=== PATIENT | female | born 1995 | race Caucasian/White ===

== ENCOUNTER → 2020-09-21 16:28 | Outpatient (CLI) | payer BC, SELFPAY ==
[2020-09-21 17:03] LABS: Add Manual Diff / Slide Review NO; Basophils Absolute Auto 0 /uL (0-100); Basophils Percent Auto 0.4 % (0-2); Eosinophils Absolute Auto 100 /uL (0-450); Eosinophils Percent Auto 0.7 % (2-4); Hematocrit 34.9 % (36-46); Hemoglobin 12.2 g/dL (12.0-16.0); Lymphocytes Absolute Auto 2500 /uL (1100-4500); Lymphocytes Percent Auto 22.7 % (25-40); Mean Corpuscular HGB Conc 35.1 % (30-36); Mean Corpuscular Hemoglobin 31.3 PG (26-34); Mean Corpuscular Volume 89.2 fL (80-100); Monocytes Absolute Auto 500 /uL (0-900); Monocytes Percent Auto 4.6 % (3-14); Neutrophils Absolute Auto 7800 /uL (1500-7000); Neutrophils Percent Auto 71.6 % (50-75); Platelet Count 247 X10^3/uL (150-400); Red Blood Cell Count 3.92 X10^6/uL (4.0-5.2); Red Cell Distribution Width 12.1 % (11.6-14.8); White Blood Cell Count 10.8 X10^3/uL (4.5-11.0)
[2020-09-21 18:38] LABS: Hepatitis B Surface Antigen NEGATIVE s/c (NEGATIVE)
[2020-09-21 19:02] LABS: HIV 1 & 2 Ab/Ag 4th Gen Combo NEGATIVE (NEGATIVE); Hep C Virus Ab w/Reflex Quant NEGATIVE s/c (NEGATIVE)
[2020-09-22 07:09] LABS: RPR Screen Non Reactive (Non Reactive)
[2020-09-22 08:12] LABS: Varicella IgG Antibody 2894 index (Immune >165)
== END ==
PROVIDERS: PCP Family Medicine; Referring Provider Obstetrics & Gynecology; Visit Provider Obstetrics & Gynecology
DX: Z34.01 Encounter for supervision of normal first pregnancy, first trimester (principal)
CPT/HCPCS: 36415; 80055; 86787; 86803; 86850; 86900; 86901; 87389

== ENCOUNTER → 2020-12-08 11:01 | Outpatient (CLI) | payer BC, SELFPAY ==
--- NOTE | 2020-12-08 11:08 | DI.US.S_ITS ---
PROCEDURE: US OB >= 14 WEEKS FETUS INDICATIONS: ANATOMY OUTSIDE/PRIOR DATING DATA: Last menstrual period (LMP): 07/16/2020. LMP-based estimated date of delivery (MÓNICA): 04/22/2021. First dating scan (date and location): 12/08/[address] [facility]. Estimated date of delivery (MÓNICA) from first dating scan: 04/23/2021. TECHNIQUE: Real-time scanning was performed of the fetus, with image documentation and biometric measurements. Endovaginal scanning: Not performed COMPARISON: [facility], US, US OB >= 14 WEEKS FETUS, 11/02/2020, 13:47. FINDINGS: General: A single living intrauterine gestation is present. Presentation: Variable Placenta: Placental position is posterior, without previa. Amniotic fluid index: 20.9 cm, normal range is 5-24 cm. heart rate: 133 beats per minute. Maternal cervical canal: 2.8 cm long. Normal lower limit is 2.5 cm. biometrics: Biparietal diameter: 4.9 cm, 20 weeks 6 days Head circumference: 18.0 cm, 20 weeks 3 days Abdominal circumference: 16.2 cm, 21 weeks 2 days Femur length: 3.4 cm, 20 weeks 4 days Estimated gestational age from initial scan: 20 weeks 4 days. Composite gestational age from present scan: 20 weeks 6 days Estimated weight and percentile: 384 g, 63rd percentile Measurement variability for biometric dating: +/- 7 days from 14 weeks to 15 weeks 6 days gestation, +/- 10 days from 16 weeks to 21 weeks 6 days gestation, +/- 2 weeks from 22 weeks to 27 weeks 6 days gestation, +/- 3 weeks for 28 weeks gestation or later. weight reference: 4500 g or EFW >90/95% is considered macrosomia or large for gestational age. EFW <10% is small for gestational age. EFW 5% or less is considered intra-uterine growth restriction. Anatomic survey: Neuro: Ventricles are non-dilated at less than 10 mm. Cisterna magna is normal at 3-11 mm. Cerebellum is normal in size and morphology. Nuchal skin fold: Normal at less than 6 mm between 14-21 weeks gestational age. Face: Nose and lips and orbits are normal. profile not well visualized due to positioning. Spine: No evidence for spina bifida. Heart: 4-chambered heart is present, with normal ventricular outflow tracts. Diaphragm: Diaphragm is intact. Stomach: Left-sided stomach is present. Kidneys: No hydronephrosis. Normal is less than 5 mm in 2nd trimester, less than 7 mm in 3rd trimester. Cord: 3-vessel cord has orthotopic insertion. Bladder: Normal in size. Extremities: All 4 extremities identified. IMPRESSION: 1. Single live intrauterine with appropriate interval growth. 2. anatomic survey within normal limits apart from poor visualization of the facial profile. Follow-up is recommended. Dictated by: Chase Esposito M.D. on 12/08/2020 at 18:01 Approved by: Chase Esposito M.D. on 12/08/2020 at 18:05
[2020-12-10 20:10] LABS: AFP, Serum 59.5 ng/mL (.); Estriol, Free 2.82 ng/mL (.); Inhibin A, Dimeric 157.33 pg/mL (.); Inhibin A, MoM 0.77 (.); Maternal Ethnicity Caucasian (.); Maternal Weight 155 lbs (.); Number of Fetuses No (.); OSBR Risk 1 IN 10000 (.); Results Report (.); Test Results *Screen Negative* (.); hCG, MoM 0.22 (.); hCG, Serum 5015 mIU/mL (.)
== END ==
PROVIDERS: PCP Family Medicine; Referring Provider Obstetrics & Gynecology; Visit Provider Obstetrics & Gynecology
DX: Z34.02 Encounter for supervision of normal first pregnancy, second trimester (principal); Z3A.20 20 weeks gestation of pregnancy
CPT/HCPCS: 36415; 76811; 82105; 82677; 84702; 86336

== ENCOUNTER → 2021-02-03 11:18 | Outpatient (CLI) | payer BC, SELFPAY ==
[2021-02-03 14:09] LABS: GTT (PREG) 1 Hour PP 50gm Dose 114 mg/dL (76-139)
== END ==
PROVIDERS: PCP Family Medicine; Referring Provider Obstetrics & Gynecology; Visit Provider Obstetrics & Gynecology
DX: Z34.02 Encounter for supervision of normal first pregnancy, second trimester (principal); Z3A.28 28 weeks gestation of pregnancy
CPT/HCPCS: 36415; 82950; 85014; 85018

== ENCOUNTER → 2021-03-31 10:30 | Outpatient (CLI) | payer BC, SELFPAY ==
[2021-04-01 12:25] LABS: Strep Grp B PCR POS for Grp B Strep
== END ==
PROVIDERS: PCP Family Medicine; Visit Provider Obstetrics & Gynecology
DX: Z34.03 Encounter for supervision of normal first pregnancy, third trimester (principal); Z3A.36 36 weeks gestation of pregnancy
CPT/HCPCS: 87653

== ENCOUNTER 2021-04-10 09:22 | Outpatient (CLI) | payer BC, SELFPAY ==
--- NOTE | 2021-04-10 09:27 | PM.OBTRLD ---
Visit Information Visit Information Date of evaluation: 04/10/21 Primary OB Provider: Delisa Echavarria On-call OB Provider: Bam Garrido Reason for Evaluation: Yes non-stress test and Yes other Comments/Additional reasons for admission: Decreased FM [facility] Medical History (Updated 02/03/21 @ 14:10 by Delisa Echavarria MD) Bronchitis (~2018) Right knee pain (~2019) Surgical History (Updated 09/15/20 @ 13:39 by Neli Woods, RN) [place] teeth extracted (~2005) Family History (Updated 09/15/20 @ 13:44 by Neli Woods RN) Mother Adopted Family history unknown Father No problems noted. Grandmother Family history unknown Grandfather Family history unknown Grandmother No problems noted. Grandfather No problems noted. Family/Other ADHD (attention deficit hyperactivity disorder) Social History marital status: number of children: 0 household members: spouse and family (Upstairs duplex rented to [id number] lives independently: No caregiver/support person: No housing: condominium pets and animals: Yes (2 dogs, 1 cat.) education level: college (Some college. 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 Quit 2018. ) Tobacco: How many years used: 1 second hand exposure: No alcohol intake: former (Quit when she found out she was . 2-3 drinks 3-4 times a week formerly. ) substance use type: former substance user and marijuana (Daily use pre-. ) Type(s) of exercise: walking (Almost everyday. ) and running (Stopped running due to knee pain.) frequency: other (Daily stretching. ) Evaluation Evaluation Baseline heart rate: 130 Variability: Moderate (11-25) monitor accelerations: Present Monitor Decelerations: Absent Category of Tracing: Reactive Status: Category l Comments: Infant remains in breech presentation by Johnny's maneuvers and she is scheduled for primary for breech on 04/15/2021. Patient will continue to observe FM, which is normal today with numerous movements noted over 25 minutes of observation. Labor precautions reviewed.,
== END 2021-04-10 09:41 | disposition home or self-care (01) ==
LOC: LABOR 09:41 → OB 04-12 11:15
PROVIDERS: PCP Family Medicine; Referring Provider Obstetrics & Gynecology; Visit Provider Obstetrics & Gynecology
DX: O36.8130 Decreased fetal movements, third trimester, not applicable or unspecified (principal); Z3A.38 38 weeks gestation of pregnancy
CPT/HCPCS: 59025; G0378; G0379

== ENCOUNTER → 2021-04-14 14:10 | Outpatient (CLI) | payer BC, SELFPAY ==
[2021-04-14 15:29] LABS: COVID19 -Nasal RAPID Negative (Negative)
== END ==
PROVIDERS: PCP Family Medicine; Visit Provider Obstetrics & Gynecology
DX: Z01.812 Encounter for preprocedural laboratory examination (principal); Z20.822 Contact with and (suspected) exposure to COVID-19
CPT/HCPCS: 87635

== ENCOUNTER 2021-04-15 06:20 | Inpatient (IN) | payer BC, SELFPAY ==
[2021-04-15 07:13] LABS: Add Manual Diff / Slide Review NO; Basophils Absolute Auto 0 /uL (0-100); Basophils Percent Auto 0.4 % (0-2); Eosinophils Absolute Auto 100 /uL (0-450); Eosinophils Percent Auto 0.9 % (2-4); Hematocrit 36.7 % (36-46); Hemoglobin 12.6 g/dL (12.0-16.0); Lymphocytes Absolute Auto 1800 /uL (1100-4500); Lymphocytes Percent Auto 19.6 % (25-40); Mean Corpuscular HGB Conc 34.3 % (30-36); Mean Corpuscular Hemoglobin 31.3 PG (26-34); Mean Corpuscular Volume 91.2 fL (80-100); Monocytes Absolute Auto 500 /uL (0-900); Monocytes Percent Auto 5.3 % (3-14); Neutrophils Absolute Auto 6900 /uL (1500-7000); Neutrophils Percent Auto 73.8 % (50-75); Platelet Count 166 X10^3/uL (150-400); Red Blood Cell Count 4.02 X10^6/uL (4.0-5.2); Red Cell Distribution Width 13.1 % (11.6-14.8); White Blood Cell Count 9.4 X10^3/uL (4.5-11.0)
--- NOTE | 2021-04-15 07:18 | SUR.OPER ---
Supine on Padded OR bed, head on pillow, safety belt at thigh, arms secured on padded arm boards at <90 degrees abduction. Bump under right buttock. Legs uncrossed with pillow under knees, gel pad to heels, tape over blanket to lower legs.
--- NOTE | 2021-04-15 07:42 | P.HP_ITS ---
History of Present Illness History of Present Illness Date Patient Seen: 04/15/21 Time Patient Seen: 07:42 Chief complaint: INPT Narrative: Patient is a 25-year-old 1 para 0 with a uterine didelphys and breech presentation. She is scheduled for primary low-transverse section. Patient History Medical History (Updated 02/03/21 @ 14:10 by Delisa Echavarria MD) Bronchitis (~2018) Right knee pain (~2019) Surgical History (Updated 09/15/20 @ 13:39 by Neli Woods RN) [place] teeth extracted (~2005) Family & Social History Family History (Updated 09/15/20 @ 13:44 by Neli Woods RN) Mother Adopted Family history unknown Father No problems noted. Grandmother Family history unknown Grandfather Family history unknown Grandmother No problems noted. Grandfather No problems noted. Family/Other ADHD (attention deficit hyperactivity disorder) Social History: household members spouse,family lives independently No caregiver/support person No Tobacco & Substance use: Smoking Status Former smoker alcohol intake former Meds Home Medications and Allergies Home Medications Medication Instructions Recorded Confirmed Type prenat.vits,gold,ken-jqpl-odioo 1 tab PO DAILY 09/15/20 04/06/21 History Allergies Allergy/AdvReac Type Severity Reaction Status Date / Time No Known Drug Allergies Allergy Verified 04/06/21 16:32 Exam Vital Signs (past 8 hours): Generally: Patient is sitting up in bed, no acute distress Lungs: Clear to auscultation bilaterally Cardiovascular: Regular rate and rhythm Fundal height: 40 cm Estimated weight 7-1/2 lb Extremities: Trace edema, negative Homans Objective Labs Result Diagrams: 04/15/21 07:05 Labs: Laboratory Results - last 24 hr 04/15/21 07:05 WBC 9.4 RBC 4.02 Hgb 12.6 Hct 36.7 MCV 91.2 MCH 31.3 MCHC 34.3 RDW 13.1 Plt Count 166 Neut % (Auto) 73.8 Lymph % (Auto) 19.6 L Dillon % (Auto) 5.3 Eos % (Auto) 0.9 L Baso % (Auto) 0.4 Neut # (Auto) 6900 Lymph # (Auto) 1800 Dillon # (Auto) 500 Eos # (Auto) 100 Baso # (Auto) 0 Assessment & Plan Assessment & Plan narrative: Assessment: 25-year-old 1 para 0 at 39 weeks gestation with uterine didelphys and breech presentation Plan: Primary low-transverse section The risks, benefits, and alternatives to the procedure were explained to the patient. The risks including bleeding, infection, injury to the bowel, bladder, or ureters. She understands these risks and agrees to proceed. A full par Q was held and consent form was signed. COVID-19 COVID-19 status: Negative Result date/Date tested (Pos, Neg/Pending): 04/14/21 Time Spent With Patient Time with patient: less than 15 minutes
--- NOTE | 2021-04-15 07:43 | PM.PREOP ---
Pre-operative Note COVID-19 COVID-19 status: Negative Result date/Date tested (Pos, Neg/Pending): 04/14/21 Interval Note History & Physical reviewed/Exam performed by Physician: Yes Changes to H&P: No H&P completed within 30 days and has changed as indicated here:: 04/15/21
[2021-04-15] MEDS: CITRIC ACID/SODIUM CITRATE 15 ML SOLUTION 30 ML PO (08:00)
[2021-04-15] MEDS: ACETAMINOPHEN 325 MG TABLET 975 MG PO (08:00)
[2021-04-15] MEDS: LACTATED RINGERS 1,000 ML 100 ML IV ×2 (08:30→09:30)
--- NOTE | 2021-04-15 09:01 | SUR.OPER ---
Viable male breech position delivered at 08:56. Cord blood vials x2 and placenta taken by L&D RN.
[2021-04-15] MEDS: CEFAZOLIN 1 GM VIAL 2 GM IV (09:07)
--- NOTE | 2021-04-15 09:59 | PM.OBCS.1 ---
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 The gave fundal pressure on delivery of the breech presentation. They assisted with retraction on closure of the uterus, bladder flap, peritoneum, fascia, and subcutaneous layer. They closed the contralateral side of the fascia. Anesthesia Type: Spinal (With Duramorph) Operative Notes Findings: Live male infant in the complete breech presentation Nuchal cord x1 Uterine didelphys Normal tubes and ovaries Closure Type: primary Specimen(s): cord blood and placenta Intraoperative meds administered: Acetaminophen, Duramorph and Ketorolac Applied: Catheter (To continuous drainage) Estimated Blood Loss (mL): 550 Blood products transfused: none Procedure in detail: The patient was taken to the operating room where she was placed in the seated position. Spinal anesthesia with Duramorph was administered. She was then placed in the dorsal supine position with a leftward tilt. She was prepped and draped in the usual sterile fashion. A timeout was performed. After spinal analgesia was found to be adequate, a Pfannenstiel skin incision was made 2 fingerbreadths above the pubic symphysis and carried through to the underlying layer fascia. The fascia was nicked in the midline, and the incision extended bilaterally with the Holley scissors. The superior aspect of the fascial incision was grasped with a [place] clamps, elevated, and the underlying rectus muscles dissected off sharply and bluntly. Attention was then turned to the inferior aspect of this incision which in a similar fashion was grasped with a [place] clamps, elevated, and the underlying rectus muscles dissected off sharply and bluntly. The rectus muscles were in the midline. The peritoneum was identified, grasped between 2 hemostats, and entered sharply with the Metzenbaum scissors. This incision was extended superiorly and inferiorly with good visualization of the bladder. The bladder blade was inserted. The vesicouterine peritoneum was identified, grasped with the pickup, and entered sharply with the Metzenbaum scissors. This incision was extended bilaterally, and the bladder flap was created digitally. The bladder blade was reinserted. The lower uterine segment was incised in a transverse fashion with the scalpel. Upon entering the amniotic sac there was a large amount of clear amniotic fluid. The infant was delivered by total breech extraction by delivering the buttocks, then both legs, turning the baby into side position and delivering 1 arm and then rotating the baby 180? to recur deliver the other arm. Two fingers were placed into the baby's mouth to keep the head flexed on delivery of the head. A nuchal cord x1 was reduced. There was a delay of cord clamping for 1 minute. The cord was double clamped and cut. The infant was handed off to waiting RN and RT. The placenta was delivered manually. The uterus was cleared of all clots and debris. The uterine incision was repaired with #1 chromic in a running interlocking fashion, and a second layer the same suture was used for an imbricating layer. Hemostasis was achieved. The tubes and ovaries were examined and were found to be normal. The gutters were cleared of all clots and debris. The bladder flap was reapproximated using 2-0 Vicryl in a running fashion. The parietal peritoneum was closed using 2-0 Vicryl in a running fashion. The fascia was reapproximated using 0 Vicryl in a running fashion. Subcutaneous layer was copiously irrigated with warm normal saline. 5 simple interrupted sutures of 3-0 Vicryl were placed to reapproximate the subcutaneous layer. The skin was closed with 4-0 Biosyn in a subcuticular fashion. Steri-Strips were placed. An Aquacel dressing was placed. The uterus was expressed of a small amount of old blood. Sponge, lap, and instrument counts were correct x-2. The patient tolerated the procedure well, and was taken to PACU in stable condition. Complications: none [place] Baby 1: Infant Gender: Male Presentation: breech Details: complete Placental Delivery Description: Manual Removal Cord Vessel Description: 3 Vessels and Nuchal Cord (X1) score (1 min): 8 score (5 min): 9 weight: 8 lb 1 oz Post-operative Condition: stable Disposition: PACU Aftercare: routine postop
[2021-04-15 10:00] VITALS: BP 136/68; PULSE 57; PULSE 58; RESP 16; O2SAT 97
[2021-04-15 10:05] VITALS: BP 131/56; PULSE 60; RESP 14; O2SAT 97
[2021-04-15 10:15] VITALS: BP 134/61; PULSE 59; RESP 16; TEMP 36.6; O2SAT 97
[2021-04-15] MEDS: ACETAMINOPHEN 325 MG TABLET 650 MG PO (11:42)
[2021-04-15 15:19] VITALS: BP 128/70
[2021-04-15] MEDS: KETOROLAC 30 MG/ML VIAL IV ×2 (15:36→21:31)
[2021-04-16] MEDS: KETOROLAC 30 MG/ML VIAL IV (04:08)
[2021-04-16 05:26] LABS: Hematocrit 26.2 % (36-46); Hemoglobin 9.2 g/dL (12.0-16.0)
[2021-04-16] MEDS: DOCUSATE 250 MG CAPSULE PO (08:33)
--- NOTE | 2021-04-16 09:49 | PM.OBPN.1 ---
Subjective - OB Subjective Patient comments: no complaints, pain well controlled, tolerating diet and other (Voided) baby status: doing well and nursing well [place] feeding status: exclusively breast feeding Date Patient Seen: 04/16/21 Time Patient Seen: 09:05 Interval history: Patient is a 25 year 1 para 1 postop day # 1 status post primary low-transverse section for a uterine didelphys and a persistent breech presentation. She is voiding without the catheter. Her pain is well controlled. is going well. She is ambulating independently. She is tolerating a diet. Exam Vital Signs (past 8 hours): Oxygen Delivery Method Room Air Narrative Exam Narrative: Generally: Patient walking around in room, no acute distress Lungs: Clear to auscultation bilaterally Cardiovascular: Regular rate and rhythm Fundus: Firm at U Incision: Clean dry and intact with Aquacel dressing Extremities: Trace edema, negative Shelley Objective Labs Result Diagrams: 04/16/21 05:00 Labs: Laboratory Results - last 24 hr 04/16/21 05:00 Hgb 9.2 L Hct 26.2 L Assessment & Plan Plan day: 1 plan OB: routine postop care Comments: Anticipate discharge April 17, 2021 Time Spent With Patient Time: Total time spent is greater than 50% in coordination of care (as documented) at patient's floor/unit and/or counseling patient: Time with patient: less than 15 minutes
[2021-04-16] MEDS: IBUPROFEN 600 MG TABLET PO ×3 (10:44→23:46)
[2021-04-16] MEDS: ACETAMINOPHEN 325 MG TABLET 650 MG PO ×3 (10:44→23:45)
[2021-04-16 17:40] VITALS: TEMP 36.9
[2021-04-17] MEDS: ACETAMINOPHEN 325 MG TABLET 650 MG PO ×2 (05:49→11:18)
[2021-04-17] MEDS: IBUPROFEN 600 MG TABLET PO ×2 (05:49→11:18)
[2021-04-17 07:47] VITALS: BP 128/70; PULSE 59; RESP 16; TEMP 36.9
[2021-04-17] MEDS: DOCUSATE 250 MG CAPSULE PO (11:18)
[2021-04-17] MEDS: LANOLIN OINT 7 GM 1 APPLIC TOP (11:18)
--- NOTE | 2021-05-13 15:41 | P.DS_ITS ---
Discharge Providers Provider Date of admission: 04/15/21 06:20 Discharge Date: 04/17/21 Primary care physician: Ruddy Mary MD Consults: 04/15/21 10:46 Consult to Lead Front Desk Agent Routine Comment: Discharge provider: Delisa Echavarria MD Summary Hospital Course Date Patient Seen: 04/17/21 Time Patient Seen: 12:30 Diagnoses: Thirty-nine weeks gestation Uterine didelphys Breech presentation Primary low-transverse section Hospital Course: Patient is a 25-year-old 1 para 1 who presented on April 15, 2021 for a scheduled primary low transverse section due to a uterine didelphys with breech presentation. The patient underwent this procedure without complication. Her postoperative course was unremarkable and she is discharged home on April 17, 2021. She was able to void without the catheter on postop day # 1. She had no nausea or vomiting. was going well. She was ambulating independently and tolerating a diet. Peripartum Data Infant Delivery Method: Section Laceration Description: None Episiotomy description: None Procedures: Spinal anesthesia Primary low-transverse section complications: none [place] 1: Gender: Male Disposition of : home Status at Discharge Cognitive/behavioral status at discharge: oriented Functional status at discharge: independent ambulation Overall status at discharge: patient is progressing back to baseline Time Spent with Patient Time attestation: Total time spent providing and/or coordinating discharge services: Time spent: Less than 30 minutes Objective Labs Result Diagrams: 04/16/21 05:00 Exam Vital Signs (past 8 hours): Oxygen Delivery Method Room Air Narrative Exam Narrative: Generally: Patient is sitting up in bed, holding infant, no acute distress Lungs: Clear to auscultation bilaterally Cardiovascular: Regular rate and rhythm Fundus: Firm at U -1 Incision: Clean dry and intact with Aquacel dressing Extremities: Trace edema, negative Homans Discharge Plan Discharge Plan Patient Disposition: Home Provider Discharge Comment: Call with fever, chills, or redness or drainage around incisions Ibuprofen 600mg every 6 hours as needed Tylenol 650mg every 6 hours Discharge orders & Medications Prescriptions: Continued prenat.vits,gold,[id number] Tablet 1 tab PO DAILY RF: 0 Follow up/Referrals: Delisa Echavarria MD [Physician] - 04/28/21 (Needs 2 week appt on [place] to see me on 04/28/21 Needs 6 week appt on [place] to see me) Diet/Activity/Treatments Diet: Diet as Tolerated Activity: No heavy lifting Skin/Wound/Dressing Care Report to your healthcare provider any signs of infection, such as:: chills, fever, increased pain, unusual drainage and unusual redness Dressing: Remove next Visit Report/Discharge Packet Instructions: DI for Stand Alone Forms: Discharge: Care Discharge Data Primary Care Provider: Ruddy Mary
== END 2021-04-17 11:45 | disposition home or self-care (01) | DRG 788 ==
PROVIDERS: Admitting Provider Obstetrics & Gynecology; PCP Family Medicine; Referring Provider Obstetrics & Gynecology; Visit Provider Obstetrics & Gynecology
PROC: 10D00Z1 Extraction of Products of Conception, Low, Open Approach (ICD-10-PCS; CPT 59514; principal; 2021-04-15 08:15)
DX: O64.1XX0 Obstructed labor due to breech presentation, not applicable or unspecified (principal); Z3A.39 39 weeks gestation of pregnancy; Z37.0 Single live birth; O34.03 Maternal care for unspecified congenital malformation of uterus, third trimester; O69.81X0 Labor and delivery complicated by cord around neck, without compression, not applicable or unspecified; Z01.812 Encounter for preprocedural laboratory examination; Z20.822 Contact with and (suspected) exposure to COVID-19
CPT/HCPCS: 36415; 59050; 59510; 85014; 85018; 85025; 86850; 86900; 86901; 87635; J0690; J1885; J2274; J2405; J2590